=== PATIENT | female | born 1940 | race Caucasian/White ===

== ENCOUNTER 2023-08-13 01:00 | Inpatient (IN) | payer MEDICARE, OTHER ==
[~2023-08-13] VITALS: Ht 162.6 cm; Wt 112.2 kg
[2023-08-13] MEDS ORDERED: IPRATROPIUM BROM 0.5 MG/2.5ML INH SOL NEB ONE (01:15)
[2023-08-13] MEDS ORDERED: ALBUTEROL SULF 2.5 MG/0.5ML(0.5%) NEB SOLN NEB ONE (01:15)
[2023-08-13 01:57] LABS: Basophils # (auto) 0 10 ^3/uL (0-0.2); Basophils % (auto) 0.2 % (0.0-2.0); Eosinophils # (auto) 0.3 10 ^3/uL (0-0.8); Eosinophils % (auto) 2.3 % (0.0-7.0); Hematocrit 36.7 % (36.0-46.0); Hemoglobin 12.2 g/dL (12.2-16.2); Lymphocytes # (auto) 0.8 10 ^3/uL (0.4-5.4); Lymphocytes % (auto) 5.6 % (10.0-50.0); Mean Corpuscular Hemoglobin 30.2 pg (28.0-32.0); Mean Corpuscular Hgb Conc. 33.2 g/dL (32.0-36.0); Mean Corpuscular Volume 91.1 fL (80.0-100.0); Monocytes # (auto) 0.6 10 ^3/uL (0-1.3); Monocytes % (auto) 4.3 % (0.0-12.0); Neutrophils # (auto) 11.7 10 ^3/uL (1.6-8.6); Neutrophils % (auto) 87.6 % (37.0-80.0); Red Blood Cells 4.03 10^6/uL (4.0-5.20); Red Cell Distribution Width 14.7 % (11.8-14.3); White Blood Cell 13.4 10^3/uL (4.4-10.8)
[2023-08-13 02:12] LABS: INR 1.09 (0.9-1.15); Prothrombin Time 11.4 sec (9.3-11.8)
[2023-08-13 02:16] LABS: Albumin 4.5 g/dL (3.2-4.8); Alkaline Phosphatase 102 U/L (46-116); Anion Gap 7 (5-15); Aspartate Aminotransferase 10 U/L (13-40); BUN/Creatinine Ratio 11.7 (10.0-20.0); Blood Urea Nitrogen 21 mg/dL (9-23); Calcium 9.2 mg/dL (8.7-10.4); Carbon Dioxide 27 mmol/L (20-30); Chloride 96 mmol/L (98-107); Glucose 125 mg/dL (74-106); Magnesium 2.2 mg/dL (1.6-2.6); Potassium 4.2 mmol/L (3.5-5.1); Sodium 130 mmol/L (136-145)
[2023-08-13 02:17] LABS: Bilirubin, Total 0.7 mg/dL (0.2-1.0); Total Protein 6.9 g/dL (5.7-8.2)
[2023-08-13 02:19] LABS: Alanine Aminotransferase < 9 U/L (7-40)
[2023-08-13] MEDS ORDERED: cefTRIAXone 1GM/50ML D5W 50 ML IV ONE (06:00)
[2023-08-13] MEDS ORDERED: AZITHROMYCIN 500MG/ 250ML 250 ML IV ONE (06:00)
[2023-08-13] MEDS ORDERED: DexAMETHasone SOD PHOS 10MG/1ML VIAL INJ IV ONE (06:00)
[2023-08-13] MEDS ORDERED: FUROSEMIDE 20 MG/2 ML VIAL IV ONE (06:00)
[2023-08-13 08:46] VITALS: PULSE 71; RESP 15; O2SAT 97
[2023-08-13] MEDS ORDERED: SOTA80TA PO (08:56)
[2023-08-13] MEDS ORDERED: LORA-1123 PO (08:56)
[2023-08-13] MEDS ORDERED: [UNRECOGNIZED DRUG - CODE] PO (08:56)
[2023-08-13] MEDS ORDERED: NITROGLYCERIN 0.4 MG SL TAB SL PRN (09:00)
[2023-08-13] MEDS ORDERED: MORPHINE SULFATE INJ 2 MG/ml SYRG IV PRN (09:00)
[2023-08-13] MEDS ORDERED: ALBUTEROL SULF 2.5 MG/0.5ML(0.5%) NEB SOLN NEB PRN (09:00)
[2023-08-13 09:18] LABS: Triglycerides 111 mg/dL (< 150)
[2023-08-13 09:19] LABS: LDL Cholesterol 91 mg/dL (< 100)
[2023-08-13 09:20] LABS: Cholesterol 158 mg/dL (< 200); HDL Cholesterol 48 mg/dL (40-59)
[2023-08-13] MEDS ORDERED: IPRATROPIUM BROM 0.5 MG/2.5ML INH SOL NEB SCH (10:00)
[2023-08-13] MEDS ORDERED: VALSARTAN HYDROCHLOROTHIAZIDE PO SCH (10:00)
[2023-08-13] MEDS ORDERED: AZITHROMYCIN 500MG/ 250ML 250 ML IV SCH (10:00)
[2023-08-13] MEDS ORDERED: ALBUTEROL SULF 2.5 MG/0.5ML(0.5%) NEB SOLN NEB SCH (10:00)
[2023-08-13] MEDS: methylPREDNISolone SOD SUCC 40 MG/ML VL IV SCH ×2 (10:14→22:06)
[2023-08-13] MEDS: cefTRIAXone 1GM/50ML D5W 50 ML IV SCH (10:15)
[2023-08-13] MEDS ORDERED: FUROSEMIDE 100 MG/10ML VIAL IV ONE (10:45)
[2023-08-13 10:56] LABS: Chloride 97 mmol/L (98-107); Potassium 4.1 mmol/L (3.5-5.1); Sodium 130 mmol/L (136-145)
[2023-08-13 10:57] LABS: Anion Gap 8 (5-15); Carbon Dioxide 25 mmol/L (20-30)
[2023-08-13 11:02] LABS: BUN/Creatinine Ratio 12.3 (10.0-20.0); Blood Urea Nitrogen 21 mg/dL (9-23); Glucose 152 mg/dL (74-106)
[2023-08-13] MEDS: ENOXAPARIN SOD 30 MG/0.3 ML SYRINGE SC SCH (11:03)
[2023-08-13] MEDS: FUROSEMIDE 20 MG/2 ML VIAL IV SCH (12:59)
[2023-08-13 14:29] VITALS: PULSE 53; RESP 18; O2SAT 94
[2023-08-13 14:52] LABS: Rapid Influenza A Negative (Negative); Rapid Influenza B Negative (Negative)
[2023-08-13 14:53] LABS: COVID19 ANTIGEN SOFIA FIA NEGATIVE (NEGATIVE)
[2023-08-13 19:21] LABS: Urine Bacteria NONE SEEN /hpf (None Seen); Urine Blood 1+ /uL (Negative); Urine Clarity Clear (Clear); Urine Color Colorless (Yellow); Urine Hyaline Cast FEW /lpf (0 - 2); Urine Protein, UAD Negative (Negative); Urine Urobilinogen Normal (Negative); Urine WBC 5 /hpf (0 - 5); Urine pH 5.5 (5.0-8.0)
[2023-08-13 19:33] LABS: Protein, Urine 10.6 mg/dL (0.0-11.9)
[2023-08-13 19:36] LABS: Creatinine, Urine 55.74 mg/dL (30.0-125.0)
[2023-08-13] MEDS ORDERED: VALSARTAN 80 MG TAB PO SCH (21:15)
[2023-08-13] MEDS ORDERED: hydroCHLOROthiazide 25 MG TAB PO SCH (21:15)
[2023-08-14] VITALS (12 sets, daily range): BP systolic 139–161; BP diastolic 53–96; PULSE 20–125; RESP 17–24; TEMP 97.6–98.1; O2SAT 91–100
[2023-08-14] MEDS: ALBUTEROL SULF 2.5 MG/0.5ML(0.5%) NEB SOLN NEB PRN (03:16)
[2023-08-14] MEDS: IPRATROPIUM BROM 0.5 MG/2.5ML INH SOL NEB PRN (03:17)
[2023-08-14 06:16] LABS: Basophils # (auto) 0 10 ^3/uL (0-0.2); Basophils % (auto) 0.2 % (0.0-2.0); Eosinophils # (auto) 0 10 ^3/uL (0-0.8); Eosinophils % (auto) 0.1 % (0.0-7.0); Hematocrit 34.8 % (36.0-46.0); Hemoglobin 11.6 g/dL (12.2-16.2); Lymphocytes # (auto) 0.9 10 ^3/uL (0.4-5.4); Mean Corpuscular Hemoglobin 30.4 pg (28.0-32.0); Mean Corpuscular Hgb Conc. 33.3 g/dL (32.0-36.0); Mean Corpuscular Volume 91.3 fL (80.0-100.0); Monocytes # (auto) 0.2 10 ^3/uL (0-1.3); Monocytes % (auto) 2.4 % (0.0-12.0); Neutrophils # (auto) 6.9 10 ^3/uL (1.6-8.6); Neutrophils % (auto) 86.3 % (37.0-80.0); Nucleated Red Blood Cells % 0.1 %; Red Blood Cells 3.81 10^6/uL (4.0-5.20); Red Cell Distribution Width 14.2 % (11.8-14.3)
[2023-08-14 06:38] LABS: Albumin 4.1 g/dL (3.2-4.8); Alkaline Phosphatase 85 U/L (46-116); Anion Gap 10 (5-15); Aspartate Aminotransferase 11 U/L (13-40); BUN/Creatinine Ratio 15.2 (10.0-20.0); Bilirubin, Total 0.4 mg/dL (0.2-1.0); Blood Urea Nitrogen 25 mg/dL (9-23); Calcium 9.7 mg/dL (8.5-10.1); Carbon Dioxide 23 mmol/L (20-30); Chloride 97 mmol/L (98-107); Glucose 154 mg/dL (74-106); Potassium 3.9 mmol/L (3.5-5.1); Sodium 130 mmol/L (136-145); Total Protein 6.4 g/dL (5.7-8.2)
[2023-08-14 06:41] LABS: Alanine Aminotransferase < 9 U/L (7-40)
[2023-08-14] MEDS ORDERED: AMLO1TAB22 PO (09:36)
[2023-08-14] MEDS ORDERED: PANT40T PO (09:36)
[2023-08-14] MEDS ORDERED: CLON0.1T PO (09:39)
[2023-08-14] MEDS ORDERED: LEVO25TA6 PO (09:39)
[2023-08-14] MEDS ORDERED: ATOR10TA PO (09:46)
[2023-08-14] MEDS ORDERED: SODB50I PO (09:46)
[2023-08-14] MEDS ORDERED: LORA-1123 PO (09:46)
[2023-08-14] MEDS: methylPREDNISolone SOD SUCC 40 MG/ML VL IV SCH (10:35)
[2023-08-14] MEDS: FUROSEMIDE 20 MG/2 ML VIAL IV SCH (10:35)
[2023-08-14] MEDS: ENOXAPARIN SOD 30 MG/0.3 ML SYRINGE SC SCH (10:36)
[2023-08-14] MEDS: cefTRIAXone 1GM/50ML D5W 50 ML IV SCH (10:36)
[2023-08-14] MEDS ORDERED: amLODIPine BESYLATE 5 MG TAB PO ONE (12:45)
[2023-08-14] MEDS ORDERED: hydrALAZINE HCL 20 MG/ML VL IV PRN (12:45)
[2023-08-14] MEDS ORDERED: FUROSEMIDE 40 MG/4 ML VIAL IV ONE (12:45)
[2023-08-14] MEDS: ATORVASTATIN 20 MG TAB PO SCH (22:09)
[2023-08-14] MEDS: cloNIDine HCL 0.1 MG TAB PO SCH (22:09)
[2023-08-15] VITALS (11 sets, daily range): BP systolic 123–172; BP diastolic 42–74; PULSE 32–53; RESP 16–20; TEMP 97.2–98.7; O2SAT 94–99
[2023-08-15] MEDS: LEVOTHYROXINE SODIUM 25 MCG TAB PO SCH (06:06)
[2023-08-15 06:51] LABS: Basophils # (auto) 0 10 ^3/uL (0-0.2); Basophils % (auto) 0.2 % (0.0-2.0); Eosinophils # (auto) 0 10 ^3/uL (0-0.8); Eosinophils % (auto) 0.1 % (0.0-7.0); Hematocrit 33.1 % (36.0-46.0); Hemoglobin 11.1 g/dL (12.2-16.2); Lymphocytes # (auto) 1.5 10 ^3/uL (0.4-5.4); Lymphocytes % (auto) 12.5 % (10.0-50.0); Mean Corpuscular Hemoglobin 30.3 pg (28.0-32.0); Mean Corpuscular Hgb Conc. 33.6 g/dL (32.0-36.0); Mean Corpuscular Volume 90.1 fL (80.0-100.0); Monocytes # (auto) 0.6 10 ^3/uL (0-1.3); Monocytes % (auto) 5.5 % (0.0-12.0); Neutrophils # (auto) 9.5 10 ^3/uL (1.6-8.6); Neutrophils % (auto) 81.7 % (37.0-80.0); Nucleated Red Blood Cells % 0.2 %; Red Blood Cells 3.68 10^6/uL (4.0-5.20); Red Cell Distribution Width 14.3 % (11.8-14.3); White Blood Cell 11.6 10^3/uL (4.4-10.8)
[2023-08-15 07:04] LABS: Anion Gap 9 (5-15); Calcium 9.5 mg/dL (8.5-10.1); Carbon Dioxide 27 mmol/L (20-30); Chloride 95 mmol/L (98-107); Potassium 3.8 mmol/L (3.5-5.1); Sodium 131 mmol/L (136-145)
[2023-08-15 07:10] LABS: BUN/Creatinine Ratio 21.9 (10.0-20.0); Glucose 112 mg/dL (74-106)
[2023-08-15 07:19] LABS: Blood Urea Nitrogen 41 mg/dL (9-23)
[2023-08-15] MEDS: PANTOPRAZOLE 40 MG TAB PO SCH (08:54)
[2023-08-15] MEDS: cloNIDine HCL 0.1 MG TAB PO SCH (08:56)
[2023-08-15] MEDS: cefTRIAXone 1GM/50ML D5W 50 ML IV SCH (08:57)
[2023-08-15] MEDS: IPRATROPIUM BROM 0.5 MG/2.5ML INH SOL NEB PRN (09:37)
[2023-08-15] MEDS: ALBUTEROL SULF 2.5 MG/0.5ML(0.5%) NEB SOLN NEB PRN (09:37)
[2023-08-15] MEDS ORDERED: AZITHROMYCIN 250 MG TAB PO SCH (10:00)
[2023-08-15] MEDS ORDERED: FUROSEMIDE 40 MG/4 ML VIAL IV SCH (10:00)
[2023-08-15] MEDS ORDERED: amLODIPine BESYLATE 5 MG TAB PO SCH (10:00)
[2023-08-15] MEDS ORDERED: ENOXAPARIN SOD 40 MG/0.4 ML SYRINGE SC SCH (10:00)
[2023-08-15] MEDS ORDERED: DOXYCYCLINE 100 MG TAB/CAP PO ONE (10:30)
[2023-08-15] MEDS ORDERED: ENOXAPARIN SOD 80 MG/0.8ML SYRINGE SC ONE (14:00)
[2023-08-15] MEDS: FUROSEMIDE 20 MG/2 ML VIAL IV SCH (16:51)
[2023-08-15] MEDS: DOXYCYCLINE 100 MG TAB/CAP PO SCH (21:26)
[2023-08-15] MEDS: ATORVASTATIN 20 MG TAB PO SCH (21:26)
[2023-08-16] VITALS (10 sets, daily range): BP systolic 113–136; BP diastolic 42–56; PULSE 44–76; RESP 18–20; TEMP 97.6–98.3; O2SAT 94–96
[2023-08-16] MEDS: FUROSEMIDE 20 MG/2 ML VIAL IV SCH ×2 (06:00→18:46)
[2023-08-16] MEDS: LEVOTHYROXINE SODIUM 25 MCG TAB PO SCH (06:53)
[2023-08-16 07:38] LABS: Basophils # (auto) 0.1 10 ^3/uL (0-0.2); Basophils % (auto) 0.6 % (0.0-2.0); Eosinophils # (auto) 0.2 10 ^3/uL (0-0.8); Eosinophils % (auto) 2.5 % (0.0-7.0); Hemoglobin 11.8 g/dL (12.2-16.2); Lymphocytes # (auto) 2.3 10 ^3/uL (0.4-5.4); Lymphocytes % (auto) 25.6 % (10.0-50.0); Mean Corpuscular Hemoglobin 30.4 pg (28.0-32.0); Mean Corpuscular Hgb Conc. 32.8 g/dL (32.0-36.0); Mean Corpuscular Volume 92.5 fL (80.0-100.0); Monocytes # (auto) 0.8 10 ^3/uL (0-1.3); Monocytes % (auto) 9.1 % (0.0-12.0); Neutrophils # (auto) 5.6 10 ^3/uL (1.6-8.6); Neutrophils % (auto) 62.2 % (37.0-80.0); Nucleated Red Blood Cells % 0.1 %; Red Blood Cells 3.89 10^6/uL (4.0-5.20); Red Cell Distribution Width 14.6 % (11.8-14.3); White Blood Cell 9.1 10^3/uL (4.4-10.8)
[2023-08-16 07:46] LABS: Anion Gap 9 (5-15); Carbon Dioxide 28 mmol/L (20-30); Chloride 94 mmol/L (98-107); Potassium 3.7 mmol/L (3.5-5.1); Sodium 131 mmol/L (136-145)
[2023-08-16 07:51] LABS: Glucose 91 mg/dL (74-106)
[2023-08-16 07:52] LABS: BUN/Creatinine Ratio 22.8 (10.0-20.0); Blood Urea Nitrogen 46 mg/dL (9-23)
[2023-08-16 08:39] LABS: Hepatitis B Surface Antigen Negative (Negative)
[2023-08-16 09:00] LABS: Hepatitis C Antibody Negative (Negative)
[2023-08-16] MEDS: cefTRIAXone 1GM/50ML D5W 50 ML IV SCH (09:20)
[2023-08-16] MEDS: ENOXAPARIN SOD 120 MG/0.8 ML SYRINGE SC SCH (09:20)
[2023-08-16] MEDS: PANTOPRAZOLE 40 MG TAB PO SCH (09:21)
[2023-08-16] MEDS: NIFEdipine ER 30 MG TAB PO SCH (09:21)
[2023-08-16] MEDS: DOXYCYCLINE 100 MG TAB/CAP PO SCH ×2 (09:22→21:28)
[2023-08-16] MEDS: ATORVASTATIN 20 MG TAB PO SCH (21:28)
[2023-08-17] VITALS (11 sets, daily range): BP systolic 104–140; BP diastolic 40–61; PULSE 50–84; RESP 17–21; TEMP 97.9–98.2; O2SAT 91–97
[2023-08-17] MEDS: FUROSEMIDE 20 MG/2 ML VIAL IV SCH (06:12)
[2023-08-17] MEDS: LEVOTHYROXINE SODIUM 25 MCG TAB PO SCH (06:13)
[2023-08-17 07:27] LABS: Chloride 96 mmol/L (98-107); Potassium 3.9 mmol/L (3.5-5.1); Sodium 132 mmol/L (136-145)
[2023-08-17 07:28] LABS: Anion Gap 10 (5-15); Carbon Dioxide 26 mmol/L (20-30)
[2023-08-17 07:29] LABS: Calcium 9.5 mg/dL (8.5-10.1)
[2023-08-17 07:33] LABS: Glucose 98 mg/dL (74-106)
[2023-08-17 07:34] LABS: BUN/Creatinine Ratio 23.7 (10.0-20.0); Blood Urea Nitrogen 44 mg/dL (9-23)
[2023-08-17] MEDS: PANTOPRAZOLE 40 MG TAB PO SCH (08:50)
[2023-08-17] MEDS: DOXYCYCLINE 100 MG TAB/CAP PO SCH ×2 (08:50→21:45)
[2023-08-17] MEDS: NIFEdipine ER 30 MG TAB PO SCH (08:52)
[2023-08-17] MEDS: ENOXAPARIN SOD 120 MG/0.8 ML SYRINGE SC SCH (08:53)
[2023-08-17] MEDS: ATORVASTATIN 20 MG TAB PO SCH (21:45)
[2023-08-18] VITALS (9 sets, daily range): BP systolic 116–145; BP diastolic 40–51; PULSE 54–65; RESP 15–20; TEMP 97.8–98.6; O2SAT 93–97
[2023-08-18] MEDS: LEVOTHYROXINE SODIUM 25 MCG TAB PO SCH (06:23)
[2023-08-18] MEDS: FUROSEMIDE 20 MG/2 ML VIAL IV SCH (06:24)
[2023-08-18 09:43] LABS: Base Excess 0.6 mmol/L (-2.0-2.0)
[2023-08-18] MEDS: NIFEdipine ER 30 MG TAB PO SCH (10:00)
[2023-08-18] MEDS ORDERED: APIXABAN 2.5 MG TAB PO SCH (10:00)
[2023-08-18] MEDS: PANTOPRAZOLE 40 MG TAB PO SCH (10:37)
[2023-08-18] MEDS: DOXYCYCLINE 100 MG TAB/CAP PO SCH ×2 (10:37→22:02)
[2023-08-18] MEDS: ATORVASTATIN 20 MG TAB PO SCH (22:02)
[2023-08-19] VITALS (12 sets, daily range): BP systolic 123–140; BP diastolic 47–54; PULSE 56–73; RESP 16–20; TEMP 97.7–98.4; O2SAT 94–98
[2023-08-19] MEDS: LEVOTHYROXINE SODIUM 25 MCG TAB PO SCH (06:29)
[2023-08-19] MEDS: FUROSEMIDE 20 MG/2 ML VIAL IV SCH (06:30)
[2023-08-19] MEDS: NIFEdipine ER 30 MG TAB PO SCH (10:30)
[2023-08-19] MEDS: PANTOPRAZOLE 40 MG TAB PO SCH (10:31)
[2023-08-19] MEDS: ENOXAPARIN SOD 120 MG/0.8 ML SYRINGE SC SCH (10:31)
[2023-08-19] MEDS: DOXYCYCLINE 100 MG TAB/CAP PO SCH ×2 (10:31→21:23)
[2023-08-19] MEDS: ATORVASTATIN 20 MG TAB PO SCH (21:23)
[2023-08-20] VITALS (9 sets, daily range): BP systolic 128–147; BP diastolic 45–60; PULSE 60–69; RESP 18; TEMP 98.1–98.8; O2SAT 94–99
[2023-08-20] MEDS: LEVOTHYROXINE SODIUM 25 MCG TAB PO SCH (06:47)
[2023-08-20] MEDS: FUROSEMIDE 20 MG/2 ML VIAL IV SCH (06:48)
[2023-08-20] MEDS: NIFEdipine ER 30 MG TAB PO SCH (09:59)
[2023-08-20] MEDS: DOXYCYCLINE 100 MG TAB/CAP PO SCH ×2 (09:59→21:42)
[2023-08-20] MEDS: PANTOPRAZOLE 40 MG TAB PO SCH (09:59)
[2023-08-20] MEDS: ENOXAPARIN SOD 120 MG/0.8 ML SYRINGE SC SCH (10:00)
[2023-08-20] MEDS: ATORVASTATIN 20 MG TAB PO SCH (21:42)
[2023-08-21] VITALS (11 sets, daily range): BP systolic 127–147; BP diastolic 45–64; PULSE 64–76; RESP 12–19; TEMP 97.1–98.1; O2SAT 93–97
[2023-08-21] MEDS: LEVOTHYROXINE SODIUM 25 MCG TAB PO SCH (06:16)
[2023-08-21] MEDS: FUROSEMIDE 20 MG/2 ML VIAL IV SCH (06:16)
[2023-08-21 06:52] LABS: Basophils # (auto) 0.1 10 ^3/uL (0-0.2); Basophils % (auto) 0.6 % (0.0-2.0); Eosinophils # (auto) 0.3 10 ^3/uL (0-0.8); Hematocrit 32.6 % (36.0-46.0); Lymphocytes # (auto) 1.8 10 ^3/uL (0.4-5.4); Lymphocytes % (auto) 18.9 % (10.0-50.0); Mean Corpuscular Hemoglobin 30.7 pg (28.0-32.0); Mean Corpuscular Hgb Conc. 33.8 g/dL (32.0-36.0); Mean Corpuscular Volume 90.9 fL (80.0-100.0); Monocytes # (auto) 0.7 10 ^3/uL (0-1.3); Neutrophils # (auto) 6.9 10 ^3/uL (1.6-8.6); Neutrophils % (auto) 70.5 % (37.0-80.0); Red Blood Cells 3.58 10^6/uL (4.0-5.20); Red Cell Distribution Width 14.4 % (11.8-14.3); White Blood Cell 9.8 10^3/uL (4.4-10.8)
[2023-08-21 06:57] LABS: Chloride 102 mmol/L (98-107); Potassium 4.4 mmol/L (3.5-5.1); Sodium 132 mmol/L (136-145)
[2023-08-21 06:58] LABS: Anion Gap 4 (5-15); Carbon Dioxide 26 mmol/L (20-30)
[2023-08-21 06:59] LABS: Calcium 8.8 mg/dL (8.7-10.4)
[2023-08-21 07:03] LABS: Glucose 112 mg/dL (74-106)
[2023-08-21 07:04] LABS: BUN/Creatinine Ratio 26.9 (10.0-20.0); Blood Urea Nitrogen 47 mg/dL (9-23); Magnesium 2.1 mg/dL (1.6-2.6)
[2023-08-21 07:10] LABS: INR 1.01 (0.9-1.15); Partial Thromboplastin Time 29.9 SEC (24.5-34.5); Prothrombin Time 10.6 sec (9.3-11.8)
[2023-08-21] MEDS: ACETAMINOPHEN 325 MG TAB PO PRN ×2 (09:48→16:04)
[2023-08-21] MEDS: DOXYCYCLINE 100 MG TAB/CAP PO SCH (09:48)
[2023-08-21] MEDS: PANTOPRAZOLE 40 MG TAB PO SCH (09:48)
[2023-08-21] MEDS: NIFEdipine ER 30 MG TAB PO SCH (09:49)
[2023-08-21] MEDS: ENOXAPARIN SOD 120 MG/0.8 ML SYRINGE SC SCH (09:50)
[2023-08-21] MEDS ORDERED: VANCOMYCIN 1GM/200ML 200 ML IV ONE ×2 (11:45→22:00)
[2023-08-21] MEDS ORDERED: IODIXANOL 320MG/ML 100ML BTL IV ONE ×2 (11:53→12:19)
[2023-08-21] MEDS ORDERED: LIDOCAINE 2%HCL (LOCAL ANESTH.) INJ 20ML MDV ONE ×2 (11:54→13:42)
[2023-08-21] MEDS ORDERED: MIDAZOLAM HCL 2MG/2ML 2ml VIAL (1mg/ml) ONE (11:57)
[2023-08-21] MEDS ORDERED: fentaNYL CITRATE 100 MCG/2 ML VL ONE (11:57)
[2023-08-21] MEDS ORDERED: VANCOMYCIN HCL 1000 MG VL ONE ×2 (11:57→13:44)
[2023-08-21] MEDS ORDERED: hydrALAZINE HCL 20 MG/ML VL ONE (13:14)
[2023-08-21] MEDS ORDERED: LABETALOL HCL 5 MG/ML ML 20ML VIAL IV ONE (14:10)
[2023-08-21] MEDS: ATORVASTATIN 20 MG TAB PO SCH (22:21)
[2023-08-22] VITALS (8 sets, daily range): BP systolic 131–153; BP diastolic 47–68; PULSE 60–86; RESP 18–19; TEMP 97.6–98.5; O2SAT 93–98
[2023-08-22 02:30] LABS: Urine Bacteria NONE SEEN /hpf (None Seen); Urine Blood 1+ /uL (Negative); Urine Clarity Clear (Clear); Urine Color Colorless (Yellow); Urine Protein, UAD TRACE (Negative); Urine Specific Gravity 1.024 (1.001-1.035); Urine Urobilinogen Normal (Negative); Urine WBC 19 /hpf (0 - 5); Urine WBC Clumps PRESENT /hpf (None Seen); Urine pH 5.5 (5.0-8.0)
[2023-08-22] MEDS: FUROSEMIDE 20 MG/2 ML VIAL IV SCH (06:32)
[2023-08-22] MEDS: ACETAMINOPHEN 325 MG TAB PO PRN (06:32)
[2023-08-22] MEDS: LEVOTHYROXINE SODIUM 25 MCG TAB PO SCH (06:32)
[2023-08-22] MEDS: NIFEdipine ER 30 MG TAB PO SCH (09:21)
[2023-08-22] MEDS: PANTOPRAZOLE 40 MG TAB PO SCH (09:21)
[2023-08-22] MEDS: ENOXAPARIN SOD 120 MG/0.8 ML SYRINGE SC SCH (09:22)
[2023-08-22 10:06] LABS: Basophils # (auto) 0.1 10 ^3/uL (0-0.2); Basophils % (auto) 0.8 % (0.0-2.0); Eosinophils # (auto) 0.2 10 ^3/uL (0-0.8); Hematocrit 34.6 % (36.0-46.0); Hemoglobin 11.3 g/dL (12.2-16.2); Lymphocytes # (auto) 1.2 10 ^3/uL (0.4-5.4); Lymphocytes % (auto) 13.6 % (10.0-50.0); Mean Corpuscular Hemoglobin 30.1 pg (28.0-32.0); Mean Corpuscular Hgb Conc. 32.5 g/dL (32.0-36.0); Mean Corpuscular Volume 92.6 fL (80.0-100.0); Monocytes # (auto) 0.6 10 ^3/uL (0-1.3); Monocytes % (auto) 6.5 % (0.0-12.0); Neutrophils % (auto) 77.1 % (37.0-80.0); Nucleated Red Blood Cells % 0.1 %; Red Blood Cells 3.74 10^6/uL (4.0-5.20); Red Cell Distribution Width 14.6 % (11.8-14.3); White Blood Cell 9.1 10^3/uL (4.4-10.8)
[2023-08-22 10:12] LABS: Chloride 99 mmol/L (98-107); Potassium 4.5 mmol/L (3.5-5.1); Sodium 132 mmol/L (136-145)
[2023-08-22 10:13] LABS: Anion Gap 10 (5-15); Calcium 9.1 mg/dL (8.5-10.1); Carbon Dioxide 23 mmol/L (20-30)
[2023-08-22 10:18] LABS: BUN/Creatinine Ratio 21.4 (10.0-20.0); Glucose 196 mg/dL (74-106)
[2023-08-22 10:31] LABS: Blood Urea Nitrogen 36 mg/dL (9-23)
[2023-08-22] MEDS ORDERED: methylPREDNISolone SOD SUCC 125 MG/2 ML VL IV ONE (13:15)
[2023-08-22] MEDS ORDERED: COLCHICINE 0.6 MG CAP PO ONE (13:15)
[2023-08-22 13:56] LABS: Base Excess 3.3 mmol/L (-2.0-2.0)
[2023-08-22] MEDS: COLCHICINE 0.6 MG CAP PO SCH (21:12)
[2023-08-22] MEDS: ATORVASTATIN 20 MG TAB PO SCH (21:12)
[2023-08-23] VITALS (8 sets, daily range): BP systolic 142–156; BP diastolic 55–68; PULSE 66–80; RESP 16–18; TEMP 36.8; O2SAT 94–99
[2023-08-23] MEDS: LEVOTHYROXINE SODIUM 25 MCG TAB PO SCH (06:16)
[2023-08-23] MEDS: COLCHICINE 0.6 MG CAP PO SCH (09:15)
[2023-08-23] MEDS: PANTOPRAZOLE 40 MG TAB PO SCH (09:15)
[2023-08-23] MEDS: NIFEdipine ER 30 MG TAB PO SCH (09:15)
[2023-08-23] MEDS: ENOXAPARIN SOD 120 MG/0.8 ML SYRINGE SC SCH (09:16)
[2023-08-23] MEDS ORDERED: FUROSEMIDE 40 MG TAB PO SCH (10:00)
[2023-08-23 10:05] LABS: Chloride 100 mmol/L (98-107); Potassium 4.8 mmol/L (3.5-5.1); Sodium 130 mmol/L (136-145)
[2023-08-23 10:06] LABS: Anion Gap 9 (5-15); Calcium 9.4 mg/dL (8.5-10.1); Carbon Dioxide 21 mmol/L (20-30)
[2023-08-23 10:11] LABS: BUN/Creatinine Ratio 19.5 (10.0-20.0); Blood Urea Nitrogen 32 mg/dL (9-23); Glucose 192 mg/dL (74-106)
[2023-08-23] MEDS ORDERED: NIFE1TAB30 PO (13:20)
[2023-08-23] MEDS ORDERED: PRED20TA2 PO (13:20)
[2023-08-23] MEDS ORDERED: FURO1TAB31 PO (13:20)
[2023-08-23] MEDS ORDERED: ALLO200T PO (13:20)
[2023-08-23] MEDS ORDERED: APIX5TAB PO (15:44)
[2023-08-23] MEDS ORDERED: PANT40TA2 PO (15:44)
[2023-08-25] MEDS ORDERED: COLCHICINE 0.6 MG CAP PO SCH (10:00)
== END 2023-08-23 17:04 | disposition home or self-care (01) | DRG 242 ==
LOC: EDBD 01:00 → ER 01:00 → TELE 08:55 → TELE-WESTW 22:53
PROVIDERS: ADMIT Nurse Practitioner Family; ATTEND Internal Medicine
PROC: 5A09357 Assistance with Respiratory Ventilation, Less than 24 Consecutive Hours, Continuous Positive Airway Pressure (ICD-10-PCS; 2023-08-14)
PROC: 0JH606Z Insertion of Pacemaker, Dual Chamber into Chest Subcutaneous Tissue and Fascia, Open Approach (ICD-10-PCS; principal; 2023-08-21)
PROC: 02H63JZ Insertion of Pacemaker Lead into Right Atrium, Percutaneous Approach (ICD-10-PCS; 2023-08-21)
PROC: 02HK3JZ Insertion of Pacemaker Lead into Right Ventricle, Percutaneous Approach (ICD-10-PCS; 2023-08-21)
DX: I49.5 Sick sinus syndrome (principal); I50.41 Acute combined systolic (congestive) and diastolic (congestive) heart failure; J18.9 Pneumonia, unspecified organism; N17.0 Acute kidney failure with tubular necrosis; J96.21 Acute and chronic respiratory failure with hypoxia; E87.1 Hypo-osmolality and hyponatremia; I13.0 Hypertensive heart and chronic kidney disease with heart failure and stage 1 through stage 4 chronic kidney disease, or unspecified chronic kidney disease; D68.69 Other thrombophilia; N13.30 Unspecified hydronephrosis; Z68.41 Body mass index [BMI] 40.0-44.9, adult; E66.01 Morbid (severe) obesity due to excess calories; E78.5 Hyperlipidemia, unspecified; E03.9 Hypothyroidism, unspecified; I48.0 Paroxysmal atrial fibrillation; M10.9 Gout, unspecified; Z20.822 Contact with and (suspected) exposure to COVID-19; G47.30 Sleep apnea, unspecified; N18.9 Chronic kidney disease, unspecified; Z79.899 Other long term (current) drug therapy; Z79.01 Long term (current) use of anticoagulants; Z85.51 Personal history of malignant neoplasm of bladder; Z80.3 Family history of malignant neoplasm of breast; Z82.49 Family history of ischemic heart disease and other diseases of the circulatory system; Z85.3 Personal history of malignant neoplasm of breast; Z90.12 Acquired absence of left breast and nipple; Z95.0 Presence of cardiac pacemaker; Z71.3 Dietary counseling and surveillance
CPT/HCPCS: 33208; 36415; 36600; 71045; 76775; 80048; 80053; 80061; 81001; 82570; 82805; 83735; 83880; 83930; 84156; 84300; 84443; 84484; 84550; 85025; 85379; 85610; 85730; 86803; 86850; 86900; 86901; 87040; 87340; 87426; 87804; 93005; 93306; 94640; 94660; 96365; 96367; 96375; 97110; 97116; 97163; 97530; 99152; 99153; G0378; J1100; J2250; Q9967